=== PATIENT | female | born 1995 | race Caucasian/White ===

== ENCOUNTER 2022-11-16 08:54 | Outpatient (CLI) | payer OTHER ==
[~2022-11-16] VITALS: Ht 182.9 cm; Wt 72.6 kg
[2022-11-16] MEDS ORDERED: albuterol 2.5 MG/3 ML nebule NEB ONE (09:15)
== END 2022-11-16 23:59 | disposition home or self-care (01) ==
LOC: RT 08:54
PROVIDERS: ATTEND Chiropractor
DX: R06.02 Shortness of breath (principal)
CPT/HCPCS: 71046; 94060; 94760; A6446; A6449